=== PATIENT | female | born 1970 | race Caucasian/White ===

== ENCOUNTER 2016-10-20 11:04 | Emergency (ER) | payer MEDICAID ==
[2016-10-20 11:04] VITALS: BMI 35.7
[2016-10-20] MEDS ORDERED: Acetaminophen-Codeine 300/30 mg Tab PO STA (11:58)
--- NOTE | 2016-10-20 12:03 | C.PDOC ---
History Of Present Illness 46 year old female presents to the ED with complaints of left foot pain radiating up the left leg to the thigh for three weeks. Patient notes surgery in [place] to the left foot 11 years ago to remove benign tumor. She denies weakness, numbness, or any new trauma. Time Seen by Provider: 10/20/16 11:47 Chief Complaint (Nursing): Lower Extremity Problem/Injury History Per: Patient History/Exam Limitations: no limitations Onset/Duration Of Symptoms: Persistent (3 weeks ) Current Symptoms Are (Timing): Still Present Recent travel outside of the [place]: No Past Medical History Reviewed: Historical Data, Nursing Documentation, Vital Signs Vital Signs: Last Vital Signs Temp 97.9 F 10/20/16 12:53 Pulse 69 10/20/16 12:53 Resp 20 10/20/16 12:53 BP 113/80 10/20/16 12:53 Pulse Ox 98 10/20/16 13:03 Family History: States: Stroke (Father) - Social History Hx Tobacco Use: No Hx Alcohol Use: No Hx Substance Use: No - Immunization History Hx Tetanus Toxoid Vaccination: No Hx Influenza Vaccination: No Hx Pneumococcal Vaccination: No Review Of Systems Constitutional: Negative for: Fever, Chills Cardiovascular: Negative for: Chest Pain Respiratory: Negative for: Shortness of Breath Gastrointestinal: Negative for: Nausea, Vomiting Musculoskeletal: Positive for: Leg Pain (left leg pain radiating from left foot ), Foot Pain (left foot pain ) Physical Exam - Physical Exam Appears: Non-toxic, No Acute Distress Skin: Warm, Dry, Other (1.5 cm callus to left heel with no erythema, discharge, or swelling. ) Head: Atraumatic Eye(s): bilateral: Normal Inspection Oral Mucosa: Moist Neck: Supple Extremity: Normal ROM (Full ROM of left knee ), Tenderness (to 1.5 cm left heel callus ), No Calf Tenderness, Capillary Refill (good capillary refill, less than two seconds ), No Deformity, No Swelling Pulses: Left Dorsalis Pedis: Normal, Right Dorsalis Pedis: Normal Neurological/Psych: Oriented x3 ED Course And Treatment O2 Sat by Pulse Oximetry: 98 (room air ) - Other Rad Left foot X-Ray X-Ray: Viewed By Me Progress Note: Left foot X-Ray was ordered and patient was given Tylenol/ Codeine 300 mg/30mg. Medical Decision Making Medical Decision Making: IMPRESSION: Soft tissue swelling most prominent about the lateral foot. No evidence of radiopaque foreign body. No acute displaced fracture or dislocation identified. 100 pm will d/c pt with ortho shoe, tylenol and podiatry outpatient follow up. 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 - Scribe Statement The provider has reviewed the documentation as recorded by the Scribe Cinthia Ballesteros All medical record entries made by the Juveibalonso were at my direction and personally dictated by me. I have reviewed the chart and agree that the record accurately reflects my personal performance of the history, physical exam, medical decision making, and the department course for this patient. I have also personally directed, reviewed, and agree with the discharge instructions and disposition.
--- NOTE | 2016-10-20 12:28 | RAD ---
PROCEDURE: Left Foot Radiographs. HISTORY: pain to heel with callus, r/o fb COMPARISON: None available. FINDINGS: BONES: No acute displaced fracture. Small calcaneal enthesophyte. JOINTS: No dislocation. SOFT TISSUES: Soft tissue swelling most prominent about the lateral foot. No evidence of radiopaque foreign body. OTHER FINDINGS: None. IMPRESSION: Soft tissue swelling most prominent about the lateral foot. No evidence of radiopaque foreign body. No acute displaced fracture or dislocation identified.
[2016-10-20] MEDS ORDERED: Acetaminophen-Codeine 300/30 mg Tab PO ONE (12:45)
[2016-10-20 12:54] VITALS: BP 113/80; PULSE 69; RESP 20; TEMP 97.9
[2016-10-20 13:03] VITALS: O2SAT 98
== END 2016-10-20 13:16 | disposition home or self-care (01) ==
LOC: C.ER 11:04
DX: M79.672 Pain in left foot (principal)

== ENCOUNTER 2017-04-16 11:07 | Emergency (ER) | payer MEDICAID ==
[2017-04-16 11:07] VITALS: BMI 35.7
[2017-04-16] MEDS ORDERED: Acetaminophen-Codeine 300/30 mg Tab PO STA (12:27)
--- NOTE | 2017-04-16 12:49 | RAD ---
HISTORY: cough COMPARISON: Chest x-ray performed 07/08/14 TECHNIQUE: Chest PA and lateral FINDINGS: Examination limited by habitus. LUNGS: No focal consolidation. Please note that chest x-ray has limited sensitivity for the detection of pulmonary masses. PLEURA: No significant pleural effusion identified. No definite pneumothorax . CARDIOVASCULAR: Borderline cardiomegaly. OSSEOUS STRUCTURES: Degenerative changes. VISUALIZED UPPER ABDOMEN: Unremarkable. OTHER FINDINGS: None. IMPRESSION: No focal consolidation identified.
--- NOTE | 2017-04-16 12:51 | RAD ---
PROCEDURE: Radiographs of the Left Shoulder HISTORY: pain COMPARISON: None available. FINDINGS: BONES: No acute displaced fracture. The distal clavicle and underlying ribs appear intact. JOINTS: No acute dislocation. Punctate calcification adjacent to the left humeral head consistent with calcific tendinitis. SOFT TISSUES: Soft tissues appear unremarkable. No evidence of radiopaque foreign body. IMPRESSION: Calcific tendonitis, left shoulder.
[2017-04-16] MEDS ORDERED: Acetaminophen-Codeine 300/30 mg Tab PO ONE (12:52)
--- NOTE | 2017-04-16 13:27 | C.PDOC ---
History Of Present Illness 46 yr old female presents to the ER with complaints of cough and congestion for the past 3 days, associated with tactile fever and left shoulder pain. Contrary to triage, patient mota snot report of chest pain but does feel discomfort with coughing. Patient denies history of prior PE, DVT or ongoing chest pain. Denies chills, SOB, nausea, vomiting, abdominal pain, diarrhea, weakness or numbness. Time Seen by Provider: 04/16/17 12:19 Chief Complaint (Nursing): Upper Extremity Problem/Injury History Per: Patient History/Exam Limitations: no limitations Onset/Duration Of Symptoms: Days (3) Past Medical History Reviewed: Historical Data, Nursing Documentation, Vital Signs Vital Signs: Last Vital Signs Temp 98 F 04/16/17 11:13 Pulse 85 04/16/17 11:13 Resp 20 04/16/17 11:13 BP 121/76 04/16/17 11:13 Pulse Ox 100 04/16/17 13:34 Family History: States: Stroke (Father) - Social History Hx Tobacco Use: No Hx Alcohol Use: No Hx Substance Use: No - Immunization History Hx Tetanus Toxoid Vaccination: No Hx Influenza Vaccination: No Hx Pneumococcal Vaccination: No Review Of Systems Except As Marked, All Systems Reviewed And Found Negative. Constitutional: Positive for: Fever (tactile fever). Negative for: Chills ENT: Positive for: Nose Congestion Cardiovascular: Positive for: Other (+ chest discomfort with coughing). Negative for: Chest Pain Respiratory: Positive for: Cough. Negative for: Shortness of Breath Gastrointestinal: Negative for: Nausea, Vomiting, Abdominal Pain, Diarrhea Neurological: Negative for: Weakness, Numbness Physical Exam - Physical Exam Appears: Non-toxic, No Acute Distress Skin: Warm, Dry, No Rash Head: Atraumatic, Normacephalic Oral Mucosa: Moist Throat: Normal, No Erythema, No Exudate, No Drooling Neck: Normal, Normal ROM, Supple Cardiovascular: Rhythm Regular, No Murmur Respiratory: Normal Breath Sounds, No Rales, No Rhonchi, No Stridor, No Wheezing Extremity: Tenderness (Left anterior shoulder), Capillary Refill (<2 secs), Other (+ decrease ROM of left shoilder secondary to pain) Neurological/Psych: Oriented x3, Normal Speech ED Course And Treatment ECG: Interpreted By Me, Viewed By Me ECG Rhythm: Sinus Rhythm Interpretation Of ECG: Normal intervals. Normal axis. No ST/T wave abnormalities. Rate From EC (BPM) O2 Sat by Pulse Oximetry: 100 (RA) Pulse Ox Interpretation: Normal - Other Rad X-Ray - Left Shoulder X-Ray: Viewed By Me, Read By Radiologist Interpretation: PROCEDURE: Radiographs of the Left Shoulder. HISTORY: pain. COMPARISON: None available. FINDINGS: BONES: No acute displaced fracture. The distal clavicle and underlying ribs appear intact. JOINTS: No acute dislocation. Punctate calcification adjacent to the left humeral head consistent with calcific tendinitis. SOFT TISSUES: Soft tissues appear unremarkable. No evidence of radiopaque foreign body. IMPRESSION: Calcific tendonitis, left shoulder. CXR X-Ray: Viewed By Me, Read By Radiologist Interpretation: HISTORY: cough. COMPARISON: Chest x-ray performed 07/08/14. TECHNIQUE: Chest PA and lateral. FINDINGS: Examination limited by habitus. LUNGS: No focal consolidation. Please note that chest x-ray has limited sensitivity for the detection of pulmonary masses. PLEURA: No significant pleural effusion identified. No definite pneumothorax . CARDIOVASCULAR: Borderline cardiomegaly. OSSEOUS STRUCTURES: Degenerative changes. VISUALIZED UPPER ABDOMEN: Unremarkable. OTHER FINDINGS: None. IMPRESSION: No focal consolidation identified. Medical Decision Making Medical Decision Making: IMPRESSION: PLAN: * X-Ray - Left Shoulder * CXR * EKG * Motrin PO * Tylenol/Codeine PO NOTE: * Patient has negative imaging * Treated with Motrin and Tylenol for the pain * On reevaluation, patient reports improvement of symptoms * Patient is being discharged home with follow up instructions Disposition Counseled Patient/Family Regarding: Studies Performed, Diagnosis, Need For Followup - Disposition Referrals: [facility] [Outside] Mai Carrillo MD [Staff Provider] - Disposition: HOME/ ROUTINE Disposition Time: 13:33 Condition: STABLE Additional Instructions: follow up with your doctor in 2 days call to make an appointment take medications as prescribed return to ER if symptoms worsens or progress Prescriptions: Acetaminophen/Codeine [Tylenol/Codeine 300 MG/30 MG] 1 tab PO Q6H PRN #12 tab PRN Reason: Pain, Severe (8-10) Naproxen [Naprosyn] 500 mg PO BID PRN #16 tab PRN Reason: Pain, Moderate (4-7) Instructions: Calcific Tendonitis of the Shoulder (DC), Cough, Adult (DC) Forms: Gen Discharge Inst Citizen Of [place], [employer] (Citizen Of [place]) Print Language: CYMRO - Clinical Impression Clinical Impression: Tendonitis, Cough - Scribe Statement The provider has reviewed the documentation as recorded by the Husam Beauchamp Provider Attestation: All medical record entries made by the Juveibalonso were at my direction and personally dictated by me. I have reviewed the chart and agree that the record accurately reflects my personal performance of the history, physical exam, medical decision making, and the department course for this patient. I have also personally directed, reviewed, and agree with the discharge instructions and disposition.
[2017-04-16 13:48] VITALS: BP 120/82; PULSE 82; RESP 16; TEMP 98.2; O2SAT 99
--- NOTE | 2017-04-16 22:46 | CARD ---
APPROVED REPORT EKG Measurement Heart [id number] <Conclusion> Normal sinus rhythm Normal ECG
== END 2017-04-16 13:48 | disposition home or self-care (01) ==
LOC: C.ER 11:07
DX: M75.32 Calcific tendinitis of left shoulder (principal); R05 Cough